=== PATIENT | male | born 1980 | race Caucasian/White ===

== ENCOUNTER 2020-06-03 14:42 | Emergency (ER) | payer OTHER, SELFPAY ==
--- NOTE | ~2020-06-03 | US_ITS ---
EXAMINATION: US venous doppler [facility] DATE: 06/03/2020 17:11 INDICATION: Left lower limb pain and swelling. TECHNIQUE: Grayscale ultrasound images without and with compression and Doppler ultrasound images of the left lower extremity veins were obtained. COMPARISON: None. FINDINGS: The visualized portions of left common femoral vein, profunda (deep) femoral vein, femoral vein, popl iteal vein, peroneal veins, posterior tibial veins, and greater saphenous vein outflow are patent. IMPRESSION: 1. No deep venous thrombosis. Reviewed, dictated and finalized at location A. [employer]
[2020-06-03 14:45] VITALS: BP 166/96; PULSE 105; RESP 19; TEMP 36.2; O2SAT 100
[2020-06-03 15:15] LABS: Basophils Absolute Auto 0.1 K/mm3 (0.0-0.1); Basophils Percent Auto 0.5 % (0.2-1.2); Eosinophils Percent Auto 0.2 % (0-4.4); Hematocrit 46.4 % (42.0-52.0); Hemoglobin 15.3 g/dL (14.0-18.0); Immature Granulocyte Absolute 0.02 K/mm3 (0.00-0.031); Immature Granulocyte Percent A 0.2 % (0-0.5); Lymphocytes Absolute Auto 1.24 K/mm3 (0.9-3.2); Lymphocytes Percent Auto 12.6 % (18.3-44.2); Mean Corpuscular Hemoglobin 27.7 pg (26-34); Mean Corpuscular Volume 84.1 fl (80-100); Mean Platelet Volume 10.1 fl (7.4-10.4); Monocytes Absolute Auto 0.6 K/mm3 (0.1-0.6); Monocytes Percent Auto 5.9 % (2.6-8.5); Neutrophils Percent Auto 80.6 % (45.5-73.1); Platelet Count Result 404 k/mm3 (150-375); Red Blood Count 5.52 M/mm3 (4.6-6.20); White Blood Count 9.9 K/mm3 (4.5-10.0)
[2020-06-03 15:29] LABS: Anion Gap 10 mmol/L (8-16); Blood Urea Nitrogen 7 mg/dL (9-20); CRP 3.9 mg/dL (<1.0); Carbon Dioxide 28 mmol/L (22-30); Chloride 100 mmol/L (98-107); Estimated CRCL calculation 151 ml/min; Estimated Glomerular Filt Rate > 60; Glucose 137 mg/dL (75-110); Potassium 3.9 mmol/L (3.4-5.0); Sodium 138 mmol/L (137-145)
--- NOTE | 2020-06-03 17:33 | ED.GENADULT ---
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 patient denies any fever chills nausea vomiting has not seen primary care for this presents in no distress notes that he does have some weeping from the left leg wound Related Data Allergies Allergy/AdvReac Type Severity Reaction Status Date / Time tetanus immune globulin Allergy Unknown Verified 06/03/20 14:47 Review of Systems Review of Systems: All systems reviewed & are unremarkable except as noted in HPI and below PMFSH Past Medical History Medical History (Updated 06/03/20 @ 17:41 by Bandar Dominique PA-C) Obesity Social History Social History (Updated 06/03/20 @ 17:37 by Bandar Dominique PA-C) Smoking status: Never smoker Exam Narrative: Exam Narrative: GENERAL: Well-appearing, morbidly obese, and in no acute distress. HEAD: Normocephalic, atraumatic. EYES: PERRLA and EOMI. ENT: Nares clear, no rhinorrhea or epistaxis. Mucous membranes moist. CHEST: Clear to auscultation. No respiratory distress. No wheezes rales or rhonchi HEART: Regular rate and rhythm. No murmur heard. 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 NEURO: No focal deficits. Alert and oriented x3. Neurovascularly intact PSYCH: Normal mood and affect. Course Course Emergency Course: Patient in the room no distress no high risk changes in the evaluation will be given primary care follow-up Vital Signs Vital signs: Vital Signs Temperature 97.1 F L 06/03/20 14:45 Pulse Rate 105 H 06/03/20 14:45 Respiratory Rate 19 06/03/20 14:45 Blood Pressure 166/96 H 06/03/20 14:45 Pulse Oximetry 100 06/03/20 14:45 Temperature 97.1 F L 06/03/20 14:45 Pulse Rate 105 H 06/03/20 14:45 Respiratory Rate 19 06/03/20 14:45 Blood Pressure 166/96 H 06/03/20 14:45 Pulse Oximetry 100 06/03/20 14:45 Medical Decision Making MDM Narrative Medical decision making narrative: Patients injury or pain is consistent with musculoskeletal etiology. No signs of neurological or vascular compromise on exam. Compartments and tisues are soft without signs of compartment syndrome. Pain is felt appropriate for further evaluation on an outpatient basis. Vital Signs Vital Signs: Vital Signs Temperature 97.1 F L 06/03/20 14:45 Pulse Rate 105 H 06/03/20 14:45 Respiratory Rate 06/03/20 14:45 Blood Pressure 166/96 H 06/03/20 14:45 Pulse Oximetry 100 06/03/20 14:45 Temperature 97.1 F L 06/03/20 14:45 Pulse Rate 105 H 06/03/20 14:45 Respiratory Rate 06/03/20 14:45 Blood Pressure 166/96 H 06/03/20 14:45 Pulse Oximetry 100 06/03/20 14:45 Lab Data Result diagrams: 06/03/20 15:08 06/03/20 15:08 Labs: Lab Results 06/03/20 06/03/20 Range/Units 15:08 15:08 WBC 9.9 (4.5-10.0) K/mm3 RBC 5.52 (4.6-6.20) M/mm3 Hgb 15.3 (14.0-18.0) g/dL Hct 46.4 (42.0-52.0) % MCV 84.1 (80-100) fl MCH 27.7 (26-34) pg MCHC 33.0 (32-36) g/dl RDW 14.0 (11.5-14.5) % Plt Count 404 H (150-375) k/mm3 MPV 10.1 (7.4-10.4) fl Immature Gran % (Auto) 0.2 (0-0.5) % Neut % (Auto) 80.6 H (45.5-73.1) % Lymph % (Auto) 12.6 L (18.3-44.2) % [place] % (Auto) 5.9 (2.6-8.5) % Eos % (Auto) 0.2 (0-4.4) % Baso % (Auto) 0.5 (0.2-1.2) % Lymph # (Auto) 1.24 (0.9-3.2) K/mm3 [place] # (Auto) 0.6 (0.1-0.6) K/mm3 Eos # (Auto) 0.0 (0-0.3) K/mm3 Baso # (Auto) 0.1 (0.0-0.1) K/mm3 Abs Immat Gran (auto) 0.02 (0.
== END 2020-06-03 17:48 | disposition home or self-care (01) ==
PROVIDERS: Emergency Medicine Emergency Medical Services; Emergency Provider Emergency Medicine
DX: L03.116 Cellulitis of left lower limb (principal); E66.9 Obesity, unspecified; Z68.44 Body mass index [BMI] 60.0-69.9, adult
CPT/HCPCS: 36415; 80048; 85025; 86140; 93971; 99284